=== PATIENT | male | born 1960 | race Caucasian/White ===

== ENCOUNTER 2017-04-25 16:58 | Emergency (ER) | payer BC ==
[~2017-04-25] VITALS: Ht 188 cm; Wt 101.0 kg
[2017-04-25 17:04] VITALS: BP 128/84; PULSE 60; RESP 16; TEMP 97.4; O2SAT 98
[2017-04-25] MEDS ORDERED: SODIUM CHLOR 0.9% 1000 ML INJ 1,000 ML IV SCH (17:13)
[2017-04-25] MEDS ORDERED: SODIUM CHLORIDE 0.9% FLUSH 10 ML FLUSH IV FLUSH PRN (17:15)
[2017-04-25] MEDS ORDERED: ONDANSETRON HCL 4 MG/2 ML VIAL IVP ONE (17:15)
[2017-04-25 17:26] VITALS: O2SAT 98
[2017-04-25 17:42] LABS: AUTOMATED NEUTROPHIL # 6.3 TH/MM3 (1.8-7.7); BASOPHIL # 0.1 TH/MM3 (0-0.2); BLOOD, URINE NEG (NEG); EOSINOPHIL # 0.4 TH/MM3 (0-0.4); EOSINOPHIL % 4.1 % (0.0-4.0); GLUCOSE,URINE NEG (NEG); HEMATOCRIT 40.1 % (39.0-51.0); HEMO FLAGS DIFF FINAL; KETONE, URINE NEG (NEG); LYMPH % 24.3 % (9.0-44.0); LYMPHOCYTE # 2.4 TH/MM3 (1.0-4.8); MEAN CORPUSCULAR HEMOGLOBIN 30.7 PG (27.0-34.0); MEAN CORPUSCULAR HGB CONC 34.5 % (32.0-36.0); MONO % 7.6 % (0.0-8.0); NITRITE,URINE NEG (NEG); PH, URINE 6.5 (5.0-8.5); PLATELET COUNT 226 TH/MM3 (150-450); RED CELL DISTRIBUTION WIDTH 12.4 % (11.6-17.2)
[2017-04-25 17:49] LABS: COMMENT (UR) CULT NOT INDICATED; CULTURE IF INDICATED CULT NOT INDICATED; METHOD OF COLLECTION CLEAN CATCH; URINE COLOR YELLOW (YELLW/STRAW); WBC, URINE 0-2 /hpf (0-5)
[2017-04-25 17:50] LABS: CHLORIDE 107 MEQ/L (98-107); POTASSIUM 3.8 MEQ/L (3.5-5.1); SODIUM (NA) 144 MEQ/L (136-145)
[2017-04-25 17:54] LABS: ANION GAP 11 MEQ/L (5-15); BICARBONATE 26.4 MEQ/L (21.0-32.0); BLOOD UREA NITROGEN 16 MG/DL (7-18)
[2017-04-25 17:57] LABS: ALT (GPT) 28 U/L (12-78); AST (GOT) 24 U/L (15-37); GLOMERULAR FILTRATION RATE 86 ML/MIN (>89)
[2017-04-25 17:59] LABS: TOTAL BILIRUBIN ADULT 0.5 MG/DL (0.2-1.0)
[2017-04-25 18:00] LABS: ALKALINE PHOSPHATASE 45 U/L (45-117)
[2017-04-25 18:05] VITALS: BP 138/83; PULSE 59; RESP 16; O2SAT 100
[2017-04-25] MEDS ORDERED: ZANT150T2 PO (18:32)
--- NOTE | 2017-04-25 18:32 | PD ---
HPI Chief Complaint: Complaint Time Seen by Provider: 17:09 Travel History International Travel<30 days: No Contact w/Intl Traveler<30days: No Traveled to known affect area: No History of Present Illness HPI Patient is a 57 year old male who presents with vague complaints. He says for a week and a half, he has had some abdominal pain and pain with urination. When asked further questions about the dysuria, he says he actually feels relief when he urinates. He denies any discharge from his penis. He says that he "masturbates a lot," and thinks maybe he pulled a muscle. He denies any nausea or vomiting. He denies fever or chills. He denies issues with bowel movements. He is sexually active with his and says there is no possibility of STD. He is concerned that he drinks often and this may be affecting his health. PFSH Past Medical History Hx Anticoagulant Therapy: No Diabetes: No Diminished Hearing: No Immunizations Current: Yes Tetanus Vaccination: < 5 Years Influenza Vaccination: No Past Surgical History Surgical History: No Previous Surgery Oral Surgery: Yes (jaw fx repair) Other Surgery: Yes (inguinal hernia repair) Social History Alcohol Use: No (denies) Tobacco Use: No (former) Substance Use: No Allergies-Medications (Allergen,Severity, Reaction): Coded Allergies: No Known Allergies (Unverified , 04/25/17) Reported Meds & Prescriptions Reported Meds & Active Scripts Active No Active Prescriptions or Reported Medications Review of Systems Except as stated in HPI: all other systems reviewed are Neg General / Constitutional: No: Fever, Chills HENT: No: Headaches, Lightheadedness Cardiovascular: No: Chest Pain or Discomfort Respiratory: No: Shortness of Breath Gastrointestinal: Positive: Abdominal Pain, No: Nausea, Vomiting Genitourinary: Positive: Dysuria Skin: No Rash, No Itching Neurologic: No: Weakness, Dizziness Physical Exam Narrative GENERAL: Awake and alert, in no acute distress. SKIN: Focused skin assessment warm/dry. HEAD: Atraumatic. Normocephalic. EYES: Pupils equal and round. No scleral icterus. ENT: Mucous membranes pink and moist. NECK: Trachea midline. No JVD. CARDIOVASCULAR: Regular rate and rhythm. No murmur appreciated. RESPIRATORY: No accessory muscle use. Clear to auscultation. Breath sounds equal bilaterally. GASTROINTESTINAL: Abdomen soft, non-tender, nondistended. No CVA tenderness. MUSCULOSKELETAL: No obvious deformities. No clubbing. No cyanosis. No edema. NEUROLOGICAL: Awake and alert. No obvious cranial nerve deficits. Motor grossly within normal limits. Normal speech. PSYCHIATRIC: Appropriate mood and affect; insight and judgment normal. Data Data Last Documented VS Vital Signs Date Time Temp Pulse Resp B/P Pulse Ox O2 Delivery O2 Flow Rate FiO2 04/25/17 18:05 59 16 138/83 100 Room Air 04/25/17 17:04 97.4 Orders Complete Blood Count With Diff (04/25/17 17:13) Comprehensive Metabolic Panel (04/25/17 17:13) Lipase (04/25/17 17:13) Urinalysis - C+S If Indicated (04/25/17 17:13) Ua Includes Microscopic (04/25/17 17:13) Iv Access Insert/Monitor (04/25/17 17:13) Ecg Monitoring (04/25/17 17:13) Oximetry (04/25/17 17:13) Ondansetron Inj (Zofran Inj) (04/25/17 17:15) Sodium Chlor 0.9% 1000 Ml Inj (Ns 1000 M (04/25/17 17:13) Sodium Chloride 0.9% Flush (Ns Flush) (04/25/17 17:15) Labs Laboratory Tests Test 04/25/17 17:30 White Blood Count 10.0 TH/MM3 Red Blood Count 4.50 MIL/MM3 Hemoglobin 13.8 GM/DL Hematocrit 40.1 % Mean Corpuscular Volume 89.0 FL Mean Corpuscular Hemoglobin 30.7 PG Mean Corpuscular Hemoglobin 34.5 % Concent Red Cell Distribution Width 12.4 % Platelet Count 226 TH/MM3 Mean Platelet Volume 10.3 FL Neutrophils (%) (Auto) 63.0 % Lymphocytes (%) (Auto) 24.3 % Monocytes (%) (Auto) 7.6 % Eosinophils (%) (Auto) 4.1 % Basophils (%) (Auto) 1.0 % Neutrophils # (Auto) 6.3 TH/MM3 Lymphocytes # (Auto) 2.4 TH/MM3 Monocytes # (Auto) 0.8 TH/MM3 Eosinophils # (Auto) 0.4 TH/MM3 Basophils # (Auto) 0.1 TH/MM3 CBC Comment DIFF FINAL Differential Comment Urine Collection Type CLEAN CATCH Urine Color YELLOW Urine Turbidity CLEAR Urine pH 6.5 Urine Specific [place] 1.012 Urine Protein NEG mg/dL Urine Glucose (UA) NEG mg/dL Urine Ketones NEG mg/dL Urine Occult Blood NEG Urine Nitrite NEG Urine Bilirubin NEG Urine Leukocyte Esterase NEG Urine WBC 0-2 /hpf Microscopic Urinalysis Comment CULT NOT INDICATED Sodium Level 144 MEQ/L Potassium Level 3.8 MEQ/L Chloride Level 107 MEQ/L Carbon Dioxide Level 26.4 MEQ/L Anion Gap 11 MEQ/L Blood Urea Nitrogen 16 MG/DL Creatinine 0.91 MG/DL Estimat Glomerular Filtration 86 ML/MIN Rate Random Glucose 94 MG/DL Calcium Level 9.1 MG/DL Total Bilirubin 0.5 MG/DL Aspartate Amino Transf 24 U/L (AST/SGOT) Alanine Aminotransferase 28 U/L (ALT/SGPT) Alkaline Phosphatase 45 U/L Total Protein 7.3 GM/DL Albumin 3.7 GM/DL Lipase 266 U/L [facility] Medical Decision Making Medical Screen Exam Complete: Yes Emergency Medical Condition: Yes Differential Diagnosis UTI versus prostatitis versus GERD Narrative Course Patient is a 57-year-old male who comes in complaining of abdominal pain and discomfort when he urinates. Exam shows no acute abnormalities. Patient later clarifies that he actually feels better when he urinates. He has a lot of concerns for chronic health issues such as his alcoholism. IV established, labs sent. Liver function tests are within normal limits, creatinine is within normal limits, labs show no acute abnormalities. Urinalysis shows no signs of infection. Patient given IV fluids and Zofran. He is advised to cut back on alcohol. We will try Zantac to see if that helps with some of his symptoms and his abdomen. He is advised of things that can increase acid production and foods to avoid. He is advised she should follow-up with a primary care doctor for his concerns over chronic health issues. He is advised follow-up with urology if he continues to have any urinary symptoms. Advised to return to the ED as needed for any worsening symptoms. Diagnosis Primary Impression: Abdominal pain Qualified Code: R10.13 - Epigastric pain Patient Instructions: Abdominal Pain (ED), Gastroesophageal Reflux Disease (ED) , General Instructions Additional Instructions: Cut back on alcohol. Avoid spicy foods, caffeine, peppers, tomatoes. Take Zantac to see if this helps with acid production. Follow-up with a primary care doctor for further concerns about chronic illnesses. Return to the emergency department as needed for any worsening symptoms. Scripts Ranitidine (Zantac)150 Mg Bev658 Mg PO BID #60 TAB Ref 0 Prov:Mounika Valle MD 04/25/17 Disposition: 01 DISCHARGE HOME Condition: Stable Mounika Valle MD Apr 25, 2017 18:32
== END 2017-04-25 19:11 | disposition home or self-care (01) ==
LOC: PHED 16:58
DX: R10.13 Epigastric pain (principal); R30.0 Dysuria; Z87.891 Personal history of nicotine dependence
CPT/HCPCS: 80053; 81001; 83690; 85025; 96361; 96374; 99284; J2405; J7030